=== PATIENT | male | born 1990 | race African-American/Black ===

== ENCOUNTER 2018-02-16 12:29 | Emergency (ER) | payer MEDICAID, OTHER ==
[~2018-02-16] VITALS: Ht 180.3 cm; Wt 143.1 kg
[2018-02-16 16:39] LABS: BASOPHILS % 0.5 % (0.0-2.0); EOSINOPHILS % 1.6 % (0.0-5.0); HEMATOCRIT. 45.9 % (42.0-52.0); HEMOGLOBIN. 15.6 g/dL (14.0-18.0); LYMPHOCYTES % 24.2 % (20.0-50.0); MEAN CORPUSCULAR HEMOGLOBIN 29.3 pg (28.0-32.0); MEAN CORPUSCULAR VOLUME 86.4 fL (80.0-94.0); MEAN PLATELET VOLUME 8.9 fl (7.4-10.4); MONOCYTES % 6.6 % (2.0-8.0); NEUTROPHILS % 67.1 % (40.0-76.0); PLATELET 270 x1000/uL (130-400); RED BLOOD CELL COUNT 5.31 mill/uL (4.7-6.1); RED CELL DISTRIBUTION WIDTH 13.1 % (11.6-14.6)
[2018-02-16 16:44] LABS: CHLORIDE 105 mEq/L (98-107)
[2018-02-16 18:35] VITALS: BP 146/93
== END 2018-02-16 19:09 | disposition home or self-care (01) ==
LOC: ER 12:29
DX: R51 Headache (principal); R22.1 Localized swelling, mass and lump, neck; I10 Essential (primary) hypertension; F12.10 Cannabis abuse, uncomplicated
CPT/HCPCS: 36415; 72040; 80048; 85025; 99285